=== PATIENT | male | born 1975 | race Caucasian/White ===

== ENCOUNTER 2016-06-21 17:28 | Emergency (ER) | payer OTHER ==
[~2016-06-21] VITALS: Ht 160 cm; Wt 63.6 kg
[2016-06-21 17:39] VITALS: BP 117/71; PULSE 59; RESP 20; O2SAT 97
--- NOTE | 2016-06-21 19:42 | ED.REPORT ---
HPI-General Illness Date of Service Jun 21, 2016 ED Provider: Dr. Coates A 40 year old male presents to the ED complaining of body aches, chills, headache, nasal congestion, subjective fever, and productive cough onset 2 days ago. He denies any ear pain, sinus pressure, or sore throat. He describes increased coughing today. He has been in bed for days. The patient has taken Tylenol with mild relief. He is unemployed but lives at [facility]. Nursing Notes Stated Complaint: COUGH/FEVER Chief Complaint: FLU/Cold Symptoms Nursing Notes Reviewed: Yes Allergies: Coded Allergies: No Known Allergies (Unverified , 06/21/16) Scheduled Azithromycin (Zithromax (Z-Jakob)) 250 Mg Tablet 250 MG PO DIRECTED Take two tablets by mouth on day 1, then take one tablet daily on days 2 through 5. General Time Seen by MD: 19:42 Chief Complaint Other (body aches) Hx Obtained From: Patient Arrived By: Walk-in Onset Occurred: 2 days ago Symptom Duration: Since onset Severity: Current: Moderate Severity: Maximum: Moderate Recent Healthcare: No recent doctor visit Similar Sx Previous: No Past Medical History Past Medical History none reported. Past Surgical History none reported. Social History Heroin use, last use in 2010. Ambulatory Status Independent Review of Systems body aches. nasal congestian. Denies sinus pressure. Denies ear pain. Full Review of Systems Constitutional: Reports: Chills, Fever (subjective) Ears / Nose / Throat: Denies: Throat pain Respiratory: Reports: Prod cough, clear Neurologic: Reports: Headache Complete sys rev & neg: except as marked. Physical Exam Vital Signs Vital Signs Date Time Temp Pulse Resp B/P Pulse Ox O2 Delivery O2 Flow Rate FiO2 06/21/16 21:42 36.5 64 20 120/70 97 Room Air 06/21/16 17:39 36.5 59 20 117/71 97 Room Air Initial VS: Reviewed General/Constitutional: Awake, Alert Head / Eyes: Atraumatic, Normocephalic, PERRL, EOMI ENT: Atraumatic, Tympanic membs NL posterior oropharynx normal. Neck: Atraumatic, Full range of motion No lymphadenopathy. Respiratory / Chest: Atraumatic, Breath sounds NL, Breath sounds = bilat, No respiratory distress, No rales, No rhonchi Cardiovascular: Heart rate NL Abdomen: Atraumatic, No guarding, No rebound Back: Atraumatic, Full range of motion Upper Extremities Upper Extremity / MS: Atraumatic, Full range of motion Wrist / Hand: Atraumatic, Full range of motion Lower Extremity / Pelvis / MS: Atraumatic, Full range of motion Ankle / Foot: Atraumatic, Full range of motion Skin: Atraumatic, Color NL, Warm, Dry Neurologic: Oriented X3, Speech NL Interpretation & Diagnostics X-Ray Chest Interpretation Chest Xray Interpretation: IMPRESSION: No acute disease Dictated by: Riky Monge M.D. on 06/21/2016 at 21:00 Approved by: Riky Monge M.D. on 06/21/2016 at 21:00 Interpretation / Wet Read by: Interpret - Radiologist Re-Eval/Medical Decision Source of Hx: Old records Time of Eval: 19:42 Re-Evaluation/Progress Note: Rechecked patient, explained plan for discharge and follow up. Counseled Regarding: Diagnosis, Lab results, Need for follow-up, When/why to return to ED Discharge & Departure Primary Impression: Upper respiratory infection URI type: unspecified URI Qualified Code: J06.9 - Acute upper respiratory infection, unspecified Disposition: Home Discharge Condition All VS Reviewed: Yes Condition: Stable Patient Instructions: Upper Respiratory Infection (ED) Additional Instructions: Thank you for entrusting us with your care today. I do not appreciate any severe infection, including pneumonia on your chest x-ray or on your physical exam. Please get plenty of rest, use ibuprofen or Tylenol as needed for body aches, and drink plenty of fluids. You should be feeling better within a week of when your infection began. If you are getting worse by Thursday you can feel the antibiotic prescription provided today. Referrals: JUAN RAMON (PCP) [facility] Attestation Portions of this note were transcribed by Sly Rivero. I, Dr. Coates personally performed the history, physical exam and medical decision-making; I reviewed and confirmed the accuracy of the information in the transcribed note. Signed by: Arti Baig, 06/21/2016 [id number]. copies to: Burt Odell DO Jun 21, 2016 19:42 Sly Rivero Jun 21, 2016 20:27
--- NOTE | 2016-06-21 21:02 | DRSVH ---
PROCEDURE: X-RAY CHEST, TWO VIEWS ([id number]) INDICATIONS: cough, fever and chills TECHNIQUE: 2 views of the chest were acquired. COMPARISON: None. FINDINGS: Surgical changes and devices: None. Lungs and pleura: No pleural effusions or pneumothorax. Lungs are clear. Mediastinum: Mediastinal contours are normal. Heart size is normal. Bones and chest wall: No suspicious bony abnormalities. Soft tissues appear unremarkable. IMPRESSION: No acute disease Dictated by: Riky Monge M.D. on 06/21/2016 at 21:00 Approved by: Riky Monge M.D. on 06/21/2016 at 21:00
[2016-06-21] MEDS ORDERED: AZIT250T4 PO (21:34)
[2016-06-21 21:42] VITALS: BP 120/70; PULSE 64; RESP 20; O2SAT 97
== END 2016-06-21 21:42 | disposition home or self-care (01) ==
LOC: SED 17:28
DX: J06.9 Acute upper respiratory infection, unspecified (principal)

== ENCOUNTER 2016-09-16 22:16 | Emergency (ER) | payer OTHER ==
[~2016-09-16] VITALS: Ht 162.6 cm; Wt 68.2 kg
[~2016-09-16 22:16] MED LIST: AZIT250T4 PO
[2016-09-16 22:18] VITALS: BP 130/66; PULSE 86; RESP 16; O2SAT 99
== END 2016-09-16 23:14 | disposition left against medical advice (07) ==
LOC: SED 22:16
DX: Z53.21 Procedure and treatment not carried out due to patient leaving prior to being seen by health care provider (principal)

== ENCOUNTER 2016-10-16 11:26 | Emergency (ER) | payer OTHER ==
[~2016-10-16] VITALS: Ht 160 cm; Wt 59.1 kg
[2016-10-16 11:30] VITALS: BP 108/62; PULSE 66; RESP 16; O2SAT 98
--- NOTE | 2016-10-16 12:23 | ED.REPORT ---
HPI-Neurologic Deficit Date of Service Oct 16, 2016 ED Provider: Santo Pearce PA-C Andrew is a 40-year-old male with a history of methamphetamine and IV heroin abuse who presents with a chief complaint of left-sided facial droop. He reports this began approximately 4 days ago. His symptoms were preceded by approximately 12 hours of vomiting, chills, tremors which the patient attributes to "cotton fever" from drawing up heroin through dirty cotton. Patient states he experienced the symptoms and woke up in the morning with a numb left upper lip. He describes sensation as being similar to post-dental procedure. He demarcates the area of his left upper lip from the filtrum to the nasolabial crease as being affected. Denies difficulty swallowing, speaking , walking or other neurological deficits. Denies chest pain, palpitations, shortness of breath. After resolution of "cotton fever" patient denies ongoing fever, chills, malaise, abdominal pain, vomiting, diaphoresis. Denies history of heart conditions, CVA, TIA. Nursing Notes Stated Complaint: LEFT FACE DROOPY Chief Complaint: Neuro Symptoms/ Deficits Nursing Notes Reviewed: Yes Allergies: Coded Allergies: No Known Allergies (Unverified , 10/16/16) Scheduled Azithromycin (Zithromax (Z-Jakob)) 250 Mg Tablet 250 MG PO DIRECTED Take two tablets by mouth on day 1, then take one tablet daily on days 2 through 5. General Time Seen by Provider: 11:43 Chief Complaint Other (face droop) Sudden in Onset?: Yes Risk Factors NIH Stroke Scale Level of Consciousness: Alert and responsive (0) Ask Month & Age: Both questions right (0) Open/Close Eyes/Hand Marinator: Performs both tasks (0) Horizontal EO Movements: None (0) Visual [place]: No visual loss (0) Facial Palsy: Minor paralysis (1) Right Arm Motor Drift (10s): No drift 10 sec (0) Left Arm Motor Drift (10s): No drift 10 sec (0) Right Leg Motor Drift (5s): No drift 5 sec (0) Left Leg Motor Drift (5s): No drift 5 sec (0) Limb Ataxia FNF/Heel-Akins: No ataxia (0) Sensation (Arms/Legs/Face): No sensory loss (0) Language Aphasia: No aphasia, normal (0) Dysarthria: No dysarthria, normal (0) Extinction/Inattention: No exctinct/inattent (0) NIHSS Score: 1 Time NIHSS Performed: 12:10 Date NIHSS Performed: Oct 16, 2016 Past Medical History Past Medical History none reported. Past Surgical History none reported. Smoking History Current Every Day Smoker Social History Heroin and methamphetamine use in the last week Ambulatory Status Independent Review of Systems Review of Systems Note: Negative unless stated otherwise in history of present illness Physical Exam General: Well appearing, well developed, well nourished, no acute distress. Head: Atraumatic, normocephalic. Eyes: No scleral icterus or injection. No discharge. Vision grossly intact. ENT: Voice clear, hearing grossly intact. Respiratory: No respiratory distress, no increased work of breathing. Speaks in complete sentences. Skin: Warm and dry. Neurological: Normal finger-nose, rapid hand, heel-akins, gait, Romberg. negative pronator or leg drift. Negative aphasia. Patellar and Achilles reflex 2+ bilaterally. Cranial nerves: Altered sensation to light touch over the left upper lip, normal sensation to sharp touch. Philtrum appears to deflect to the right during normal speech, however smile is symmetrical on examination. Forehead motion closure is intact and symmetrical. Tongue protrusion and strength to the right and left is intact. Sensation to light touch over forehead, maxilla and mandible present and equal B/L. Vision grossly intact, PERRL, EOMI. Voice clear and fluent, no drooling/pooling of saliva, uvula rises midline. Psychological: alert and oriented. Speech appropriate, linear and logical. Behavior appropriate. Initial Vital Signs Vital Signs (First) Date Time Temp Pulse Resp B/P Pulse Ox O2 Delivery O2 Flow Rate FiO2 10/16/16 11:30 36.4 66 16 108/62 98 Room Air Normal Interpretation & Diagnostics Interpretation & Diagnostics: PROCEDURE: MRI BRAIN WITHOUT CONTRAST ([id number]) INDICATIONS: left upper lip facial paralysis IMPRESSION: 1. No explanation for facial paresthesias. 2. No recent infarct. No acute process. Lab Results Interpretation Result Diagram: 10/16/16 1245 10/16/16 1245 Test 10/16/16 12:45 White Blood Count 9.6th/mm3 (3.8-10.1) Red Blood Count 4.21mil/mm3 (4.40-5.80) Hemoglobin 12.4g/dL (13.8-17.2) Hematocrit 38.4% (41.0-50.0) Mean Corpuscular Volume 91.2fL (81-100) Mean Corpuscular Hemoglobin 29.5pg (27.0-35.0) Mean Corpuscular Hemoglobin Concent 32.3% (32.0-37.0) Red Cell Distribution Width 13.9% (12.3-15.4) Platelet Count 196bil/L (150-400) Neutrophils (%) (Auto) 64.7% (40-74) Lymphocytes (%) (Auto) 27.5% (14-46) Monocytes (%) (Auto) 6.0% (4-12) Eosinophils (%) (Auto) 0.9% (0-5) Basophils (%) (Auto) 0.7% (0-3) Sodium Level 138mEq/L (134-144) Potassium Level 3.8mEq/L (3.5-5.2) Chloride Level 95mEq/L (97-108) Carbon Dioxide Level 29mmol/L (18-29) Blood Urea Nitrogen 15mg/dL (6-24) Creatinine 0.81mg/dL (0.76-1.27) Estimat Glomerular Filtration Rate 112mL/min (>59) Glucose Level 96mg/dL (60-99) Calcium Level 9.1mg/dL (8.5-10.1) Total Bilirubin 0.4mg/dL (0.0-1.2) Aspartate Amino Transf (AST/SGOT) 38U/L (0-50) Alanine Aminotransferase (ALT/SGPT) 118U/L (0-44) Alkaline Phosphatase 153U/L (25-150) Total Protein 6.6g/dL (6.4-8.4) Albumin 3.9g/dL (3.4-5.0) Hold Laguerre Top Tube Received (Received) Re-Eval/Medical Decision Med Decision/Clinical Course 40-year-old male with a history of IV drug abuse referred from urgent care with concern for left-sided facial droop, onset approximate 4 days ago following a brief illness consisting of vomiting, diaphoresis, chills which the patient attributes to preparing heroin with dirty equipment. Denies difficulty speaking or swallowing or other neurological symptoms. Physical examination reveals altered sensation of light touch over the left upper lip and the area demarcated by the philtrum and the nasolabial crease. Sensation to sharp touch is intact. Trauma appears to deflect to the right during normal speech, but smile is symmetrical on examination. Neurological examination is otherwise normal. Physical exam is otherwise benign, with no murmur noted despite careful auscultation. NIH stroke scale score is 1. Patellar and Achilles reflexes are 2+ and symmetrical. I discussed this case with Dr. Rutledge, who is familiar with the patient and recommends a noncontrast MR brain to rule out stroke as well as basic labs. CMP is unremarkable with chloride slightly low at 95, ALT elevated at 118 and alkaline phosphatase slightly elevated at 153. The CBC reveals a mild anemia with RBC 4.1, hemoglobin 12.4 and hematocrit 38.4. Noncontrast MR brain is normal. I discussed these findings with Dr. Rutledge, and At this point we are reassured against stroke as well as botulism, Romie flores. We believe the patient is stable and safe to be discharged. Patient wishes to be discharged. Provided primary care follow-up referral and strict emergency return precautions. Patient verbalizes understanding of and consent to the plan Discharge & Departure Impression: Primary Impression: Numbness of lip Disposition: Home Discharge Condition All VS Reviewed: Yes Condition: Stable Additional Instructions: Evaluation in the emergency department for a number lipase includes interview, physical examination, blood work and MRI all of which are reassuring that this is not caused by an immediately dangerous condition such as a stroke. I believe you are stable and safe to be discharged home. Please follow-up with a primary care provider as soon as possible to continue investigating this numbness. I will provide you with a referral. It is extremely important that you stop using heroin and methamphetamine, they are extremely detrimental to your health. Return to emergency department for new or worsening symptoms such as increasing weakness, numbness, difficulty speaking or swallowing, severe headache. Referrals: [facility] EDSupervising Provider for APC: Devan Rutledge MD copies to: [facility] Santo Pearce PA-C Oct 16, 2016 12:23
[2016-10-16 13:07] LABS: BASOPHILS % (AUTO) 0.7 % (0-3); EOSINOPHILS % (AUTO) 0.9 % (0-5); Mean Corpuscular Hemoglobin 29.5 pg (27.0-35.0); Mean Corpuscular Volume 91.2 fL (81-100); NEUTROPHILS % (AUTO) 64.7 % (40-74); Platelet Count 196 bil/L (150-400)
[2016-10-16 14:52] VITALS: BP 92/54; PULSE 63; RESP 20; O2SAT 98
--- NOTE | 2016-10-16 16:40 | DRSVH ---
PROCEDURE: MRI BRAIN WITHOUT CONTRAST ([id number]) INDICATIONS: left upper lip facial paralysis TECHNIQUE: Noncontrast axial T1 spin echo, axial T2 fast spin echo, sagittal and axial FLAIR, coronal T2 fast sp in echo, axial gradient echo, axial diffusion and ADC through the brain. COMPARISON: None. FINDINGS: Image quality: Excellent. CSF Spaces: Basal cisterns are patent. No extra-axial fluid collections. Ventricles are normal in size and shape. Brain: No intracranial masses or hemorrhage. Ag/white matter interface is normal. Brainstem appe ars normal. Diffusion-weighted images demonstrate no acute ischemic insult. No chronic ischemic ins ults. Normal intravascular flow voids are present. Skull and face: Calvarium has normal marrow signal. Orbits appear normal. Sinuses: Sinuses and mastoids are clear. IMPRESSION: 1. No explanation for facial paresthesias. 2. No recent infarct. No acute process. Dictated by: Shahida De La Rosa M.D. on 10/16/2016 at 16:37 Approved by: Shahida De La Rosa M.D. on 10/16/2016 at 16:38
[2016-10-16 17:00] VITALS: BP 96/60; PULSE 78; RESP 20; O2SAT 98
== END 2016-10-16 17:26 | disposition home or self-care (01) ==
LOC: SED 11:26
DX: R20.0 Anesthesia of skin (principal); F15.10 Other stimulant abuse, uncomplicated; F17.200 Nicotine dependence, unspecified, uncomplicated
CPT/HCPCS: 36415; 70551; 80053; 85025; 99284; G0463